=== PATIENT | female | born 1970 | race Caucasian/White ===

== ENCOUNTER 2016-10-21 06:50 | Day surgery (SDC) | payer OTHER ==
[~2016-10-21] VITALS: Ht 167.6 cm; Wt 97.5 kg
[~2016-10-21 06:50] MED LIST: DAILY VALUE1 EACH PO; DYAZIDE, MA1 CAPSULE PO; GLUCOPHAGE XR750 MG PO; MELOXICAM15 MG PO; METFORMIN HCL500 MG PO; Motrin PO; Percocet 5/325,Endoc PO; PriLOSEC PO
[2016-10-21 07:14] VITALS: BP 124/86
[2016-10-21 07:23] LABS: POINT-OF-CARE METER ID UU14174212
[2016-10-21 08:36] LABS: METH RESISTANT S AUREUS PCR NEGATIVE (NEGATIVE)
[2016-10-21 08:39] LABS: PROBE CHECK PASS; SPECIMEN PROCESSING CONTROL PASS
== END 2016-10-21 11:12 | disposition home or self-care (01) ==
LOC: SDC 06:50 → 2SOUTH 13:19 → EDSTATUS 13:19 → SDC 13:21
PROVIDERS: Surgery
PROC: 0HB Skin and Breast, Excision (ICD-10-PCS; principal; 2016-10-21)
DX: N61.0 Mastitis without abscess (principal); Z53.9 Procedure and treatment not carried out, unspecified reason
CPT/HCPCS: 82948; 87641; 93005; J0690; J2250; J3010

== ENCOUNTER 2017-03-01 05:41 | Day surgery (SDC) | payer OTHER ==
[~2017-03-01] VITALS: Ht 167.6 cm; Wt 104.9 kg
[2017-03-01 06:21] LABS: POINT-OF-CARE METER ID UU14174212
[2017-03-01 06:40] VITALS: BP 121/83
[2017-03-01 07:39] LABS: METH RESISTANT S AUREUS PCR NEGATIVE (NEGATIVE); PROBE CHECK PASS; SPECIMEN PROCESSING CONTROL PASS
[2017-03-01 09:19] LABS: POINT-OF-CARE METER ID UU13113675
[2017-03-01 11:23] VITALS: BP 115/65
[2017-03-01 12:02] LABS: INTERNAL CONTROL VALID? YES
[2017-03-01 15:50] VITALS: BP 116/61
[2017-03-01 20:28] VITALS: BP 109/58
[2017-03-02 04:06] VITALS: BP 102/64
[2017-03-02 07:25] VITALS: BP 100/62
[2017-03-02] MEDS ORDERED: PERCOCET 5/31 TABLET PO (08:27)
== END 2017-03-02 11:41 | disposition home or self-care (01) ==
LOC: SDC 05:41 → 2SOUTH 08:58 → 2EASTP 08:58 → SDC 10:24 → 2EASTP 11:19 → SDC 15:25 → 2EASTP 03-02 11:41
PROVIDERS: Surgery
PROC: 0WUF4JZ Supplement Abdominal Wall with Synthetic Substitute, Percutaneous Endoscopic Approach (ICD-10-PCS; principal; 2017-03-01)
DX: K43.2 Incisional hernia without obstruction or gangrene (principal); I10 Essential (primary) hypertension; E11.9 Type 2 diabetes mellitus without complications; F41.9 Anxiety disorder, unspecified; E78.1 Pure hyperglyceridemia; E78.00 Pure hypercholesterolemia, unspecified; I25.10 Atherosclerotic heart disease of native coronary artery without angina pectoris; I44.0 Atrioventricular block, first degree; R00.1 Bradycardia, unspecified; Z79.84 Long term (current) use of oral hypoglycemic drugs; Z87.891 Personal history of nicotine dependence; Z83.3 Family history of diabetes mellitus; Z83.49 Family history of other endocrine, nutritional and metabolic diseases; Z82.49 Family history of ischemic heart disease and other diseases of the circulatory system; Z82.5 Family history of asthma and other chronic lower respiratory diseases
CPT/HCPCS: 82948; 84703; 87641; 94799; C1781; G0378; J0330; J0690; J1100; J1170; J1885; J2250; J2405; J2710; J3010; J7120